=== PATIENT | male | born 2000 | race African-American/Black ===

== ENCOUNTER 2021-02-17 15:53 | Emergency (ER) | payer OTHER ==
[~2021-02-17] VITALS: Ht 193 cm; Wt 104.3 kg
--- NOTE | 2021-02-17 15:53 | NUR ---
Written and verbal consent obtained from patient for blood alcohol, name and verified by patient. Disinfected patient's skin with Iodine that did not contain alcohol or other volatile organic compound. Collected the blood from the subject named by venipuncture, in the presence of Officer Geeta. Used a sterile, dry hypodermic needle and dry vacuum blood collection. Two dry vacuum blood collection was supplied by the officer named above. Withdrew a specimen of blood from Left Antecubital of the subject named above. Inverted both blood tubes several times to ensure that the preservative and anticoagulant were thoroughly mixed in the blood specimen. I initialed both blood tube labels for identification. The labeled blood tubes were handed directly to the Officer named above. The blood tubes stopper remained in place while I had possession of the blood tubes. The Officer placed tubes into envelope and sealed it in my presence. Envelope initialed by myself and Officer named above. Patient tolerated well, bandage applied, and bleeding controlled.
--- NOTE | 2021-02-17 15:53 | NUR ---
Pt moving upon blood alcohol draw. Able to draw one full tube however patient moving upon changing to second blood tube requiring wildland fire fighter specialist to bring second set. After receipt of second set, patient was told to not move while the blood draw in process. When tube attached to draw patient jumped and stated "I what is that powder, I'm not letting you inject dope into me." This caused the blood to discontinue. Mixed C[employer] Livestock Farmer stated they could use one tube.
--- NOTE | 2021-02-17 15:55 | NUR ---
Patient to ER bed hallway to [facility] for evaluation. Side rails up. Report given to JACQUELINE Cabrera.
[2021-02-17 15:56] VITALS: BP_SYST 129
--- NOTE | 2021-02-17 16:00 | NUR ---
Pt brought to ER for ok to book and blood alcohol draw. Pt in H1 VSS, law enforcement bedside, no complaints.
--- NOTE | 2021-02-17 16:14 | NUR ---
THIAGO Villela at bedside examining patient.
[2021-02-17 16:52] VITALS: BP_SYST 129
--- NOTE | 2021-02-17 16:53 | NUR ---
Patient given written and verbal discharge instructions and verbalizes understanding. ER MD discussed with patient the results and treatment provided. Patient in stable condition. ID arm band removed. No Rx given. Patient educated on pain management and to follow up with PMD. Pain Scale 0/10. Opportunity for questions provided and answered. Medication side effect fact sheet provided.
== END 2021-02-17 16:53 ==
LOC: SED 15:53
DX: Z02.89 Encounter for other administrative examinations (principal); J45.909 Unspecified asthma, uncomplicated
CPT/HCPCS: 99283